=== PATIENT | female | born 1990 | race Caucasian/White ===

== ENCOUNTER → 2025-06-25 | Outpatient (CLI) | payer OTHER, BC, SELFPAY ==
--- NOTE | 2025-06-25 12:54 | CT_ITS ---
PROCEDURE: ORB SELLA POST FOSSA EAR W/O 06/25/2025 REASON FOR EXAM: PROPTOSIS LEFT EYE Headaches. TECHNIQUE: ORB SELLA POST FOSSA EAR W/O CONTRAST: None One or more dose reduction techniques were used (e.g., Automated exposure control, adjustment of the mA and/or kV according to patient size, use of iterative reconstruction technique). RADIATION DOSE SUMMARY: CTDlvol: 29.38 mGy DLP: 371.15 mGycm COMPARISON: None FINDINGS: Globes: Unremarkable Extraocular Muscles: Unremarkable Orbits: Unremarkable Lacrimal Glands: Unremarkable Bones: Unremarkable Other: Visualized paranasal sinuses and intracranial structures: Nodular mucosal thickening at the base of the right maxillary sinus. Minimal mucosal thickening along the lateral wall of the left maxillary sinus. Findings suggestive of empty sella. CT/Orb Sella Post Fossa Ear w/o IMPRESSION: Nodular mucosal thickening of the right maxillary sinus and minimal mucosal thi ckening of the left maxillary sinus. Findings suggestive of an empty sella. Reading Location: [id number]
== END | disposition home or self-care (01) ==
LOC: CT 12:50
PROVIDERS: PCP Student in an Organized Health Care Education/Training Program; Referring Provider Ophthalmology; Visit Provider Ophthalmology
DX: H05.20 Unspecified exophthalmos (principal)
CPT/HCPCS: 70480

== ENCOUNTER → 2025-07-28 | Outpatient (CLI) | payer OTHER, BC, SELFPAY ==
--- NOTE | 2025-07-28 13:22 | MRI_ITS ---
PROCEDURE: MRI BRAIN W/WO CONTRAST 07/28/2025 REASON FOR EXAM: CHRONIC HEADACHE-POSSIBLE EMPTY SELLA SYNDROM, R/O MASS TECHNIQUE: Procedure Code: [id number] Modality: MR Procedure: BRAIN W/WO CONTRAST Multiplanar and multisequential MRI of the brain was performed without and with IV gadolinium based contrast administration. CONTRAST: Clariscan VOLUME: 20 mL COMPARISON: CT of the orbits 06/25/2025. FINDINGS: The ventricular and sulcal size and configuration are within normal limits. No regions of abnormal restricted diffusion, susceptibility or other parenchymal signal alteration. No intracranial mass lesion or pathologic enhancement. Nonspecific partial empty sella with pituitary peripheral ization. Preserved major intracranial vascular flow voids. Grossly unremarkable orbits. Peripheral mucosal thickening in the floors of the maxillary sinuses, greater on the right. No mastoid effusion. MRI/Brain W/WO Contrast IMPRESSION: No acute intracranial abnormality. No mass lesion. Nonspecific partial empty sella. Often clinically insignificant but can be seen with elevated intracranial pressure (pseudotumor cerebri) or empty sella syndrome in the appropriate context. Reading Location: [id number]
== END | disposition home or self-care (01) ==
LOC: MRI 13:19
PROVIDERS: PCP Student in an Organized Health Care Education/Training Program; Referring Provider Ophthalmology; Visit Provider Ophthalmology
DX: G44.52 New daily persistent headache (NDPH) (principal)
CPT/HCPCS: 70553; A9575